=== PATIENT | female | born 1950 | race Caucasian/White ===

== ENCOUNTER → 2017-04-11 | Outpatient (CLI) | payer MEDICARE, OTHER ==
--- NOTE | 2017-04-11 12:27 | DIREP ---
PROCEDURE:CHEST 2 VIEWS COMPARISON:None. INDICATIONS:COUGH R05 FINDINGS: LUNGS/PLEURA:No significant pulmonary parenchymal abnormalities. No effusions. VASCULATURE:Normal. Unremarkable pulmonary vasculature. CARDIAC:Normal. No cardiac silhouette abnormality or cardiomegaly. MEDIASTINUM:Normal. No visible mass or adenopathy. BONES:Minimal degenerative changes of the thoracic spine. OTHER:Negative. CONCLUSION:No acute cardiopulmonary abnormality. Dictated by: Elias Velez M.D. on 04/11/2017 at 12:24 PM
--- NOTE | 2017-04-11 12:29 | DIREP ---
PROCEDURE:XR ABDOMEN 2 VIEWS COMPARISON:None. INDICATIONS:EPIGASTRIC ABDOMINAL PAIN TECHNIQUE:Flat and upright views of the abdomen are provided. FINDINGS: BOWEL GAS PATTERN:Moderate stool within the proximal colon. No dilated loops of small bowel. CALCIFICATIONS:No suspicious calcifications. Presumed phleboliths within the pelvis. LUNG BASES:Clear. BONES:Mild reverse S shaped curvature of the imaged thoracolumbar spine. Associated degenerative changes. OTHER:No additional findings. CONCLUSION: 1. Nonspecific nonobstructive bowel gas pattern. Moderate fecal burden. 2. Presumed phleboliths within the pelvis. No suspicious calcifications. Dictated by: Elias Velez M.D. On 04/11/2017 at 12:26 PM
== END | disposition home or self-care (01) ==
LOC: RAD 10:58
PROVIDERS: ATTEND Internal Medicine
DX: M47.894 Other spondylosis, thoracic region (principal); M47.895 Other spondylosis, thoracolumbar region
CPT/HCPCS: 71020; 74020

== ENCOUNTER → 2017-08-13 | Outpatient (CLI) | payer MEDICARE ==
--- NOTE | 2017-08-13 16:46 | DIREP ---
PROCEDURE:Digital Screening Mammogram TECHNIQUE:MLO and CC digital images of each breast are provided. Computer Assisted Detection (CAD) was utilized. Multiple efforts were made to obtain more posterior tissue on CC and MLO views, provided views were the best obtainable. COMPARISON:[facility], , DIGITAL MAMMO SCREENING, 02/20/2012, 10:25 AM. INDICATIONS:SCREENING BREAST COMPOSITION:The breasts are extremely dense, which lowers the sensitivity of mammography. FINDINGS:There are no grouped microcalcifications, masses, or architectural distortions to suggest malignancy. There is no significant change as compared with the previous examination(s). IMPRESSION:No mammographic evidence of malignancy. RECOMMENDATIONS:Routine Screening Mammography per [employer] guidelines. OVERALL FINAL ASSESSMENT:BI-RADS 1 - Negative Mammogram Note: This facility participates in a mammography screening patient reminder system. Dictated by: Dwain Colmenares M.D. on 08/13/2017 at 04:40 PM
== END ==
LOC: RAD 12:58
PROVIDERS: ATTEND Internal Medicine
DX: Z12.31 Encounter for screening mammogram for malignant neoplasm of breast (principal)
CPT/HCPCS: 77067

== ENCOUNTER → 2018-05-14 | Outpatient (CLI) | payer MEDICARE ==
--- NOTE | 2018-05-15 09:09 | DIREP ---
PROCEDURE:BONE DENSITY PERIPHERAL INDICATIONS:SCREENING COMPARISON:None. FINDINGS: Femur Proximal RIGHT femur bone mineral density (BMD) (g/cm2): 0.677 T-score : -2.6 Proximal LEFT femur bone mineral density (BMD) (g/cm2): 0.697T-score: -2.5 Lumbar Lumbar bone mineral density (BMD) (g/cm2): 0.947T-score : -2.0 Imaging- No significant findings CONCLUSION:1. Osteopenia of the lumbar spine and left hip. Osteoporosis of the right hip. 2. Based on the [place] FRAX study, the patient's 10-year probability of a major osteoporotic fracture (clinical spine, forearm, hip or shoulder) is 18.8 %, and the 10-year probability of a hip fracture is 4.2 %. SUGGESTED RECOMMENDATIONS: Normal & Osteopenia:Consideration should be given to use of calcium supplementation, daily multiple vitamins and adequate exercise, as preventive measures against osteoporosis, if clinically indicated. Osteoporosis & Severe Osteoporosis:In addition to the above, consideration should be given to medical therapy against osteoporosis, if clinically indicated. Dictated by: Sathish Pace M.D. on 05/15/2018 at 09:03 AM
== END | disposition home or self-care (01) ==
LOC: BD 12:52
PROVIDERS: ATTEND Nurse Practitioner Women's Health
DX: Z13.820 Encounter for screening for osteoporosis (principal); M81.0 Age-related osteoporosis without current pathological fracture; M85.88 Other specified disorders of bone density and structure, other site
CPT/HCPCS: 77080

== ENCOUNTER → 2018-08-14 | Outpatient (CLI) | payer MEDICARE ==
--- NOTE | 2018-08-15 10:57 | DIREP ---
PROCEDURE:Digital Screening Mammogram TECHNIQUE:MLO and CC digital images of each breast are provided. Computer Assisted Detection (CAD) was utilized. COMPARISON:[facility], DIGITAL MAMMO SCREENING, 02/20/2012, 10:25 AM. [facility], MAMMO BILATERAL SCREENING, 08/13/2017, 01:44 PM. INDICATIONS:SCREENING BREAST COMPOSITION:The breasts are heterogeneously dense, which may obscure small masses. FINDINGS:There are no grouped microcalcifications, masses, or architectural distortions to suggest malignancy. There is no significant change as compared with the previous examination(s). IMPRESSION:No mammographic evidence of malignancy. RECOMMENDATIONS:Routine Screening Mammography per [employer] guidelines. OVERALL FINAL ASSESSMENT:BI-RADS 2 - Benign Mammogram Note: This facility participates in a mammography screening patient reminder system. Dictated by: Dwain Colmenares M.D. on 08/15/2018 at 10:53 AM
== END | disposition home or self-care (01) ==
LOC: RAD 11:09
PROVIDERS: ATTEND Nurse Practitioner Women's Health
DX: Z12.31 Encounter for screening mammogram for malignant neoplasm of breast (principal)
CPT/HCPCS: 77067

== ENCOUNTER → 2020-12-03 | Outpatient (CLI) | payer MEDICARE, OTHER ==
--- NOTE | 2020-12-03 14:22 | DIREP ---
PROCEDURE:Digital Screening Mammogram TECHNIQUE:MLO, CC, and XCCL digital images of each breast are provided. The patient has very limited mobility of both shoulders. The patient suffers from limited range of motion. Positioning is therefore suboptimal, but was performed on a "best-efforts" basis, given the patient's physical condition. Computer Assisted Detection (CAD) was utilized. COMPARISON:[facility], MAMMO BILATERAL SCREENING, 08/13/2017, 01:44 PM. [facility], DIGITAL MAMMO SCREENING, 02/20/2012, 10:25 AM. [facility], MAMMO BILATERAL SCREENING, 08/14/2018, 11:25 AM. INDICATIONS:SCREENING BREAST COMPOSITION:Extremely dense, which lowers the sensitivity of mammography. FINDINGS:There are no grouped microcalcifications, masses, or architectural distortions to suggest malignancy. There is no significant change as compared with the previous examination(s). IMPRESSION:No mammographic evidence of malignancy. RECOMMENDATIONS:Routine Screening Mammography per [employer] guidelines. OVERALL FINAL ASSESSMENT:BI-RADS 2 - Benign Mammogram Note: This facility participates in a mammography screening patient reminder system. Dictated by: Murphy Blanc MD on 12/03/2020 at 02:19 PM
--- NOTE | 2020-12-03 14:25 | DIREP ---
PROCEDURE:BONE DENSITY PERIPHERAL INDICATIONS:OSTEOPOROSIS SCREENING, VITAMIN D DEFICIENCY COMPARISON:[facility], , BONE DENSITY PERIPHERAL, 05/14/2018, 01:14 PM. FINDINGS: Proximal right femur bone mineral density (BMD) (g/cm2):0.683 Right Femur T-score (standard deviation relative to young adult mean BMD):-2.6 Right Femur Z-score (standard deviation relative to age-matched control group): -0.9 Proximal left femur bone mineral density (BMD) (g/cm2):0.703 Left Femur T-score (standard deviation relative to young adult mean BMD):-2.4 Left Femur Z-score (standard deviation relative to age-matched control group): -0.8 Lumbar bone mineral density (BMD) (g/cm2):0.937 Lumbar T-score (standard deviation relative to young adult mean BMD):-2.1 Lumbar Z-score (standard deviation relative to age-matched control group):-0.2 CONCLUSION: 1. Bone mineral density in the proximal right femur falls within the range of osteoporosis. 2. Bone mineral densities in the proximal left femur and lumbar spine fall within the range of osteopenia. 3. Based on left femoral neck, 10 year probability of major osteoporotic fracture is 22.0% and hip fracture is 6.2% 4. Slight decrease in bone mineral density in the lumbar spine when on previous study of 01/03/2019, bone mineral density was 0.947. Slight increase bone mineral density in the right hip when on previous study, bone mineral density was 0.677. Slight increase bone mineral density in the left hip when on previous study, bone mineral density was 0.697. *Note: The Z-score is provided for informational purposes. The T-score is preferable for clinical decisions. When comparing exams, a change of >4% is considered statistically significant. SUGGESTED RECOMMENDATIONS: Normal & Osteopenia:Consideration should be given to use of calcium supplementation, daily multiple vitamins and adequate exercise, as preventive measures against osteoporosis, if clinically indicated. Osteoporosis & Severe Osteoporosis:In addition to the above, consideration should be given to medical therapy against osteoporosis, if clinically indicated. Dictated by: Devan Saenz M.D. on 12/03/2020 at 02:09 PM
== END | disposition home or self-care (01) ==
LOC: RAD 10:32
PROVIDERS: ATTEND Nurse Practitioner Adult Health
DX: Z12.31 Encounter for screening mammogram for malignant neoplasm of breast (principal); Z13.820 Encounter for screening for osteoporosis; E55.9 Vitamin D deficiency, unspecified; Z78.0 Asymptomatic menopausal state
CPT/HCPCS: 77067; 77080

== ENCOUNTER → 2021-02-24 | Outpatient (CLI) | payer MEDICARE, OTHER | END | disposition home or self-care (01) | LOC: NPLAB 11:50 | PROVIDERS: ATTEND Nurse Practitioner Adult Health | DX: Z20.822 Contact with and (suspected) exposure to COVID-19 (principal) | CPT/HCPCS: 87426 ==